=== PATIENT | male | born 2000 | race Caucasian/White ===

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

== ENCOUNTER 2018-07-03 15:19 | Emergency (ER) | payer BC, OTHER ==
--- NOTE | 2018-07-03 15:29 | EDPHY ---
HPI/HX/ROS/PE/MDM Narrative: CHIEF COMPLAINT: EtOH, "I got way too fucked up and here I am" HISTORY OF PRESENT ILLNESS: This patient is a healthy 18 year old male arriving via EMS after being found hunched over a toilet vomiting due to alcohol consumption. He admits to consuming a large quantity of alcohol, mostly vodka, beginning at 11am this morning, four hours prior to arrival. He denies co-ingestion. He denies history of depression, anxiety, any current suicidal ideation. Per EMS report, the patient stated he was feeling overwhelmed and depressed. During my interview, he admits to feeling overwhelmed but denies again any depression or thoughts of self-harm. He states his mother is a bilingual social worker and he has been able to speak with her in the past about similar feelings. Per EMS, he was not able to go to [facility] due to inability to walk unassisted and persistent vomiting. Vitals were stable in transport, Zofran administered for nausea relief. Currently, the patient continues to feel nauseous, but is pleasant and responsive. No fever, chills, chest pain, shortness of breath, palpitations, diarrhea, urinary complaints, headache, lightheadedness. REVIEW OF SYSTEMS: A comprehensive 10 system review of systems is otherwise negative aside from elements mentioned in the history of present illness and medical decision making. PAST MEDICAL HISTORY: Asthma. SOCIAL HISTORY: Student at [employer]. Does not abuse tobacco or illicit drugs. Lives in [place]. VITAL SIGNS: Reviewed by me GENERAL: Well-developed, well-nourished, reports nausea. HEENT: Atraumatic. Eyes: Slight injection. Slight nystagmus. PERRL. Mouth: moist mucous membranes. No erythema or lesions. Neck: supple with no adenopathy. Nontender. LUNGS: Clear to auscultation bilaterally, no wheezes, rhonchi or rales. CARDIAC: Regular rate and rhythm, no rubs, murmurs or gallops. ABDOMEN: Soft, nontender, nondistended, bowel sounds normal. BACK: No CVA tenderness. EXTREMITIES: No trauma. No edema. Range of motion is normal throughout. NEURO: Alert and oriented, grossly nonfocal. SKIN: Warm and dry, no rash. PSYCHIATRIC: Normal mentation, no agitation. Portions of this note were transcribed by a medical billing associate. I personally performed a history, physical exam, medical decision making, and confirmed accuracy of information the transcribed note. ED Course: 15:19 Met EMS at bedside 18 y/o male presents with acute alcohol intoxication, denies co-ingestion, denies suicidal ideation. Patient appears intoxicated, exam otherwise largely unremarkable. IV established by EMS. Plan to administer 1L IV NS, 4mg IV Zofran for symptom relief. Breathalyzer 296. EtOH 416. Urine tox scree is negative. Labs otherwise largely unremarkable. Patient would like to voluntarily discuss treatment options for alcohol abuse recovery. 18:45 Case management has evaluated the patient and spoken with staff at [facility] regarding possible placement. Decision pending. Otherwise, he will be discharged home in good condition with a sober ride from a friend. Additional resources for alcohol recovery provided by case management. Patient in ED for prolonged time awaiting decision from [facility]. At 10pm, patients uncle presents and further discussion held. I spoke to [facility] again regarding their intake process. At this point, they are declining patients admission as they feel he is no longer needing detox but is needing rehabilitation, which they report they do not provide. Patient, uncle, and mother via phone all aware of additional intensive outpatient rehab facilities available for patient. He is not showing signs of withdrawl at this point and will be discharged with his uncle and will follow up with outpatient rehab services. MDM: Diff dx considered included alcohol intoxication, alcohol withdrawl, co- ingestions, substance abuse, pancreatitis, hepatitis, dehydration. - Data Points Laboratory Results: Laboratory Results 07/03/18 15:19 07/03/18 15:19 Medications Given: Discontinued Medications Sodium Chloride (Ns) 1,000 mls @ 0 mls/hr IV ONCE ONE; Wide Open PRN Reason: Protocol Stop: 07/03/18 15:37 Last Admin: 07/03/18 15:43 Dose: 1,000 mls Ondansetron HCl (Zofran) 4 mg IVP EDNOW ONE Stop: 07/03/18 15:41 Last Admin: 07/03/18 15:43 Dose: 4 mg General Initial Vital Signs: Initial Vital Signs Temperature (C) 36.5 C 07/03/18 15:20 Heart Rate 95 07/03/18 15:20 Respiratory Rate 16 07/03/18 15:20 Blood Pressure 124/106 H 07/03/18 15:20 O2 Sat (%) 93 07/03/18 15:20 O2 Delivery Mode Room Air Allergies/Adverse Reactions: shrimp Allergy (Verified 12/31/17 00:19) Home Medications: Medication Instructions Recorded NK [No Known Home Meds] 12/31/17 Departure - Departure Disposition: Home, Routine, Self-Care Clinical Impression: Alcoholic intoxication Qualifiers: Complication of substance-induced condition: uncomplicated Qualified Code(s): F10.920 - Alcohol use, unspecified with intoxication, uncomplicated Condition: Good Instructions: Alcohol Intoxication (ED) Additional Instructions: Please refrain from abusing alcohol. [employer] offers counseling services to students through the [facility] ([facility] program. The [facility] Main Office is located in the [facility], [address]. You may go during walk- in hours to establish initial appointments or to learn more, Tuesday - Tuesday from 10am - 4pm. Return to the emergency department immediately for fever, vomiting, confusion, headache, abdominal pain or other worsening of condition Referrals: [facility] [Clinic] - As per Instructions [facility] [Outside] - As per Instructions Report Scribed for: Adriana Sandoval Report Scribed by: Harmony Braswell Date of Report: 07/03/18 Time of Report: 15:37
[2018-07-03] MEDS ORDERED: NS 1,000 ML IV ONE (15:36)
[2018-07-03] MEDS ORDERED: ONDANSETRON 4 MG/2 ML VIAL IVP ONE (15:40)
[2018-07-03 17:21] LABS: PLATELET COUNT 292 10^3/uL (150-400)
--- NOTE | 2018-07-03 17:26 | ASMTCMCOM ---
CM Note CM Note Notes: Pt presented to the ED via EMS from his apartment for alcohol intoxication. Pt was found hunched over a toilet vomiting by one of his roommates. Requested to speak to patient re:his alcohol abuse. Pt states he drinks 1-2x/week, usually alone, and when he drinks he consumes about 11 shots of vodka, if not more. Pt's last drink was today at about 1300. Pt denies any mental health diagnoses and denies SI/HI. Pt denies using any illicit drugs. Pt sometimes smokes cigarettes and marijuana but not regularly. Pt acknowledges that he has been "binge drinking" 1-2x/wk for about 3-4 months and his dustin drinking is somewhat erratic "sometimes its for a few days in a row and then sometimes I'll go a week without drinking at all." Pt becomes tearful when discussing treatment options and is concerned about being able to quit drinking without help. Pt states he does not feel safe returning home because he is afraid he will keep drinking. Pt is originally from [place] and states all of his family still lives there. Pt states he has supportive local friends "but not sure it would be enough." Pt is a [employer] student. Pt was seen in the ED at [facility] in December 2017 for ETOH abuse and was recommended to follow up w/[facility] but pt never did because he states he didn't think he had a problem then. Pt voluntarily wanting to seek treatment for his alcohol abuse. Date Signed: 07/03/2018 05:25 PM Electronically Signed By:Hortencia Villarreal RN
--- NOTE | 2018-07-03 18:22 | ASMTCMCOM ---
CM Note CM Note Notes: Referral sent to [facility] via [facility]. Spoke w/Maryjane in Intake at ([phone]) and confirmed they received the web referral and will review it DIPESH. This CM is leaving for the evening so Maryjane was provided the ED # to call if they need any additional information and/or are able to accept patient. It patient is accepted to , please provide a cab voucher (provided by CM to ED RN) or ask pt if he can afford a Lyft or Uber ride. If pt is not accepted to , consider discharging home w/ sober ride and instructions to follow up w/CP outpatient or another option on the list of resources he was provided by ERYN . Pt could go to [facility] but he would have to be Self-Pay since does not accept commercial insurance. CM to followup tomorrow. Date Signed: 07/03/2018 06:21 PM Electronically Signed By:Hortencia Villarreal RN
[2018-07-03] MEDS ORDERED: diphenhydrAMINE 25 MG CAP PO ONE (21:30)
[2018-07-03 22:29] VITALS: BP 121/74
--- NOTE | 2018-07-04 17:20 | ASMTCMCOM ---
CM Note CM Note Notes: Followed up with patient ([phone]) today. Pt states he was picked up by his Uncle (who lives in [place]) from the ED last night. Pt states he is doing better today and that he still has the lists of ETOH abuse treatment resources that CM provided him last night. Pt encouraged to reach out to one of the options. Pt pleasant and appreciative of assistance. CM available for further assistance if needed. Date Signed: 07/04/2018 05:19 PM Electronically Signed By:Hortencia Villarreal RN
== END 2018-07-03 22:33 | disposition home or self-care (01) ==
LOC: EDUNIT#
DX: F10.129 Alcohol abuse with intoxication, unspecified (principal); E86.9 Volume depletion, unspecified
CPT/HCPCS: 80305; 96374; G0480; J2405